=== PATIENT | male | born 1995 | race Caucasian/White ===

== ENCOUNTER 2017-08-20 16:02 | Emergency (ER) | payer BC ==
[~2017-08-20] VITALS: Ht 175.3 cm; Wt 74.8 kg
--- NOTE | 2017-08-20 16:24 | PHYS DOC ---
Past Medical History Past Medical History: No Pertinent History Past Surgical History: No Surgical History Alcohol Use: Rarely Drug Use: None Adult General Chief Complaint Chief Complaint: PUNCTURE WOUND HPI HPI Patient is a 22 year old male with no significant medical history who presents today with a puncture wound to the left foot after stepping on a nail with tenderness shoes on. Patient states this happened today. Review of Systems Review of Systems Constitutional: Denies fever or chills [] Musculoskeletal: Denies back pain or joint pain [] Integument: puncture wound to the left foot Neurologic: Denies headache, focal weakness or sensory changes [] Current Medications Current Medications Current Medications Medications (Trade) Dose Ordered Sig/Krista Start Time Stop Time Status Last Admin Dose Admin Acetaminophen/ Hydrocodone Bitart (Lortab 7.5-325/ 15ml Oral Solution) 15 ml 1X ONCE 08/20/17 16:30 08/20/17 16:31 Diphtheria/ Tetanus/Acell Pertussis (Boostrix) 0.5 ml ONCE ONCE 08/20/17 16:30 08/20/17 16:31 Allergies Allergies Allergies Coded Allergies Type Severity Reaction Last Updated Verified No Known Drug Allergies 01/16/16 No Physical Exam Physical Exam Constitutional: Well developed, well nourished, no acute distress, non-toxic appearance. [] Skin: Left plantar foot proximal second metatarsal with a puncture wound approximately 0.1 x 0.1 cm. There is no redness to the area. Neurovascular exam is intact to the left foot. +2 left pedal pulse. Back: No tenderness, no CVA tenderness. [] Extremities: No tenderness, no cyanosis, no clubbing, ROM intact, no edema. [] Neurologic: Alert and oriented X 3, normal motor function, normal sensory function, no focal deficits noted. [] Psychologic: Affect normal, judgement normal, mood normal. [] EKG EKG [] Radiology/Procedures Radiology/Procedures [] Course & Med Decision Making Course & Med Decision Making Pertinent Labs and Imaging studies reviewed. (See chart for details) Patient is in the ED with complaints of puncture wound to the left foot after stepping on a nail with tenderness she was on. Patient was given tetanus in the ED. Discharged with Cipro. Instructed to keep the foot clean and dry. Follow-up with his own PCP in 1-2 weeks. Dragon Disclaimer Dragon Disclaimer This electronic medical record was generated, in whole or in part, using a voice recognition dictation system. Departure Departure Impression: Primary Impression: Puncture wound of foot, left Disposition: 01 HOME, SELF-CARE Condition: STABLE Referrals: NO PCP (PCP) follow up with your doctor in one week Patient Instructions: Puncture Wound, [id number] Additional Instructions: You were seen with a puncture wound to the left foot. Keep the area clean and dry. Follow-up with your doctor in 1-2 weeks. Return to the ED or your doctor at any point to have signs and symptoms of infection including increased redness warmth or yellow drainage from the puncture wound site. Scripts Ciprofloxacin Hcl (CIPRO) 500 Mg Tablet 1 TAB PO BID, #20 TAB Prov: YOVANY CARDENAS APRN 08/20/17 Problem Qualifiers Primary Impression: Puncture wound of foot, left Encounter type: initial encounter Qualified Codes: S91.332A - Puncture wound without foreign body, left foot, initial encounter YOVANY CARDENAS APRN Aug 20, 2017 16:24
[2017-08-20] MEDS ORDERED: CIPR500T94 PO (16:25)
[2017-08-20 16:26] VITALS: BP 127/62
[2017-08-20] MEDS ORDERED: HYDROcodon/APAP 7.5/325MG ORAL 15 ML SOLUTION PO ONE (16:30)
[2017-08-20] MEDS ORDERED: DIPHTH,PERTUSS(ACELL),TET TOX 0.5 ML DISP.SYRIN. VAX IM ONE (16:30)
== END 2017-08-20 16:53 | disposition home or self-care (01) ==
LOC: ER 16:02
DX: S91.332A Puncture wound without foreign body, left foot, initial encounter (principal); W45.0XXA Nail entering through skin, initial encounter; Y93.89 Activity, other specified; Y92.89 Other specified places as the place of occurrence of the external cause; Y99.8 Other external cause status
CPT/HCPCS: 90471; 90715; 99283-25

== ENCOUNTER 2018-01-01 16:47 | Emergency (ER) | payer SELFPAY, BC ==
[2018-01-01] MEDS: IBUPROFEN 100 MG/5 ML ORAL.SUSP. PO ×2 (17:18)
== END 2018-01-01 18:20 | disposition home or self-care (01) ==
LOC: ER 16:47
DX: S63.601A Unspecified sprain of right thumb, initial encounter (principal); W23.0XXA Caught, crushed, jammed, or pinched between moving objects, initial encounter; Y93.89 Activity, other specified; Y99.8 Other external cause status; Y92.89 Other specified places as the place of occurrence of the external cause
CPT/HCPCS: 29125; 73130; 99284-25

== ENCOUNTER 2018-04-02 17:22 | Emergency (ER) | payer BC | END 2018-04-02 17:58 | disposition home or self-care (01) | LOC: ER 17:58 | DX: H00.021 Hordeolum internum right upper eyelid (principal) | CPT/HCPCS: 99283 ==